=== PATIENT | female | born 1990 | race Caucasian/White ===

== ENCOUNTER 2020-08-29 10:15 | Outpatient (RCR) | payer OTHER, SELFPAY ==
[2020-08-08 13:07] VITALS: BMI 42.9
--- NOTE | 2020-08-08 13:21 | PC.ADMIT ---
Patient is a 30 year old female who was referred by her outpatient therapist d/t increase in depression and anxiety and self harming behaviors. Patient reports Hx of cutting on and off since age 16. Last time she cut was a week ago. Patient reports the cuts are superficial. Patient also struggling with panic attacks and PTSD sxs. Patient reports she works at [employer] and is currently on a [employer] d/t her symptoms. Patient presents with depressed mood, anxious affect. Denied current SI. Reports having passive thoughts that it would be nice if she did not exsist however reports that she does not want to . Patient's medications reconciled with patient and patient's pharmacy. Reports taking medications as prescribed. She has Type I diabetes reporting she was dx when she was 11 years old. Stated her blood sugars by glucometer run in the 150-200 range and reports checking her BS a few times a day. Stated she is a brittle diabetic and sees her pesticide control inspector Q 3 months as a result. Patient gave verbal permission to email her a copy of her safety plan. [ End ]
--- NOTE | 2020-08-08 14:01 | HO.PS.ADMBH ---
HPI Chief Complaint: depression Sources of Information: patient interviewed, chart reviewed and crisis/core team assessment reviewed HPI Narrative: Pt is a 30 year-old woman with hx of Bipolar Disorder who was referred by OP psychotherapist to PHP due to increased depression, passive suicidal ideation, anhedonia, increased anxiety. Pt reports that for the past 8 months she has been working nights, extra hours, feels exhausted. She reports passive suicidal ideation but denies any plan or intent to hurt herself. She denies hx of suicide attempts. She denies hx of VH/AH. She reports multiple medication trials in the past but thinks current medications are helpful. Past Psychiatric History: Inpatient: 2017 unknown location OP: [facility]uero[facility]; [facility]. Suicide attempts: none Medication trials: lithium, multiple antidepressants Medical Evaluation Reviewed: Yes [facility] Medical History (Updated 08/12/20 @ 15:00 by Kelin Scott) Hyperlipemia PCOS (polycystic ovarian syndrome) Precancerous changes of the cervix Type I diabetes mellitus Diagnostics Vital Signs (24Hr): Body Mass Index 42.9 Meds/Allergies Allergies Allergies Allergy/AdvReac Type Severity Reaction Status Date / Time No Known Allergies Allergy Verified 08/08/20 12:55 [No Known Allergies*] Mental Status Exam Mental Status Exam Narrative: Appearance: casually groomed, fair hygiene, in NAD Behavior: calm, cooperative Psychomotor: no agitation or retardation noted Speech: clear, normal rate/rhythm/volume, spontaneous TP: linear TC: no signs of psychosis, hopeless/helpless, anhedonia Mood: depressed Affect:blunted SI:passive but denies plan or intent HI:none AH/VH:none Delusions:none Insight/judgment:fair x 2. Memory/cog: alert, oriented x 3. grossly intact to conversational testing. Assessment & Plan Assessment & Plan (1) Bipolar 2 disorder, major depressive episode: Status: Acute Code(s): F31.81 - Bipolar II disorder Assessment and Plan: 1. continue current medications. Certification I certify that partial hospital treatment is medically necessary due to the symptoms and problems resulting from the patient's mental illness and the failure to treat the patient at the partial hospital level of care would likely result in the patient requiring inpatient psychiatric care which could not be prevented at a less intensive level of care. Telehealth Telehealth Location of provider rendering services: practice address Location of patient: address on file Patient Identification confirmed using: Name, : Yes Telehealth method: video Patient verbally consented to treatment: Yes Patient verbally consented to billing insurance company: Yes Patient informed of any privacy concerns related to visit: Yes Time spent with patient (mins): 30
--- NOTE | 2020-08-14 13:58 | P.PNPSP_ITS ---
Subjective Subjective Date of Service: 08/14/20 Reason For Visit: depression Interim History: The patient that she has improved with her current regimen. She reports that her depressive symptoms have improved but she has some residual symptoms such as anxiety and sporadic dysphoria but no safety concerns. We discussed at lent her treatment options and she was reluctant to do any medication changes. Medication Compliance: Yes Side effects from medications: No Review of Systems Review of Systems Yes all other systems are reviewed and are negative Mental Status Exam Mental Status Exam Patient Appearance: Well Grooomed and Appropriate Patient Orientation: Person, Place, Time and Situation Level of Consciousness: Awake Patient Behavior: Appropriate Mood Description: Calm Affect Description: Constricted Patient Cognition Impaired: No Ability to Follow Directions: Excellent Speech Pattern: Clear Memory Description: Intact Hallucinations: None Delusions: Not Present Thought Process: Intact Thought Content: positive for Intact Judgement: Good Judgement and Insight: Insight improved Diagnostics Vital Signs (24Hr): Body Mass Index 42.9 Assessment & Plan Patient educated on: diagnosis and medication risk/benefits Informed Consent: understands Reason for contiued partial hosp. stay Substantial Risk for: rapid decompensation Certification I certify that partial hospital treatment is medically necessary due to the symptoms and problems resulting from the patient's mental illness and the failure to treat the patient at the partial hospital level of care would likely result in the patient requiring inpatient psychiatric care which could not be prevented at a less intensive level of care. Greater than 50% of the session was spent on counseling and/or coordination of care Discharge Plan Discharge Attending provider: Benjamin Villa Additional Instructions: Keep current regimen F/U as per protocol Medications: New lorazepam [Ativan] 1 mg tablet 1 mg PO DAILY PRN (Reason: anxiety) Qty: 7 RF: 0 No Action lamotrigine [Lamictal] 200 mg Tablet 200 mg PO DAILY RF: 0 spironolactone 100 mg Tablet 100 mg PO DAILY RF: 0 dextroamphetamine-amphetamine [Adderall XR] 20 mg capsule,extended release 2 4hr 1 cap PO QAM RF: 0 zolpidem [Ambien] 5 mg Tablet 5 mg PO BEDTIME PRN (Reason: Insomnia) RF: 0 insulin lispro [Humalog KwikPen Insulin] 100 unit/mL insulin pen See Rx Instructions .ROUTE .COMPLEX RF: 0 rosuvastatin [Crestor] 20 mg Tablet 20 mg PO DAILY RF: 0 bupropion HCl [Wellbutrin XL] 300 mg Tablet Extended Release 24 Hr 300 mg PO QAM RF: 0 Lantus Solostar U-100 Insulin 100 unit/mL (3 mL) insulin pen See Rx Instructions .ROUTE .COMPLEX RF: 0 Vitamin D3 100 mcg (4,000 unit) Capsule 100 mcg PO DAILY RF: 0 biotin 1,000 mcg Tablet,Chewable 1,000 mcg PO DAILY RF: 0 Telehealth Telehealth Location of provider rendering services: practice address Location of patient: address on file Patient Identification confirmed using: Name, : Yes Telehealth method: video Patient verbally consented to treatment: Yes Patient verbally consented to billing insurance company: Yes Patient informed of any privacy concerns related to visit: Yes Time spent with patient (mins): 25
--- NOTE | 2020-08-19 12:48 | PC.NURSE ---
Called patent and let her know that we are cancelling groups for the remainder of the day as we lost power. Patient plans on returning to the program tomorrow.
--- NOTE | 2020-08-21 10:45 | PC.NURSE ---
I called and spoke to pt. She was scheduled to discharge from [facility] today, but appeared quite overwhelmed and agitated in group, and indicated not feelign ready. I asked if she would like more time. She spoke about stress related to getting time off of work, and having to change the return to work date, but ultimately decided to accept more time in the program. She will work on grounding and coping with urges to self harm and to engage in other self-destructive behaviors.
--- NOTE | 2020-08-21 13:25 | HO.PHPPROGNO ---
Subjective Subjective Date of Service: 08/21/20 Reason For Visit: depression Interim History: The patient reported that the current regimen has been working well with her, her mood is chronically dhsphoric due to psychosocial stressors. So far, the medicatons are working well for her, no side effects. She is reluctant to increase Lamictal or any other medications Medication Compliance: Yes Side effects from medications: No Review of Systems Review of Systems Yes all other systems are reviewed and are negative Mental Status Exam Mental Status Exam Patient Appearance: Well Grooomed Patient Orientation: Person, Place, Time and Situation Level of Consciousness: Awake Patient Behavior: Appropriate Mood Description: Calm Affect Description: Calm Patient Cognition Impaired: No Ability to Follow Directions: Good Speech Pattern: Clear Memory Description: Intact Hallucinations: None Delusions: Not Present Thought Process: Intact Judgement: Fair Diagnostics Vital Signs (24Hr): Body Mass Index 42.9 Assessment & Plan Assessment & Plan (1) Bipolar 2 disorder, major depressive episode: Status: Acute Code(s): F31.81 - Bipolar II disorder Assessment and Plan: Keep same treatment Certification I certify that partial hospital treatment is medically necessary due to the symptoms and problems resulting from the patient's mental illness and the failure to treat the patient at the partial hospital level of care would likely result in the patient requiring inpatient psychiatric care which could not be prevented at a less intensive level of care. Greater than 50% of the session was spent on counseling and/or coordination of care Discharge Plan Discharge Attending provider: Benjamin Villa Additional Instructions: Keep current regimen F/U as per protocol Medications: New lorazepam [Ativan] 1 mg tablet 1 mg PO DAILY PRN (Reason: anxiety) Qty: 7 RF: 0 No Action lamotrigine [Lamictal] 200 mg Tablet 200 mg PO DAILY RF: 0 spironolactone 100 mg Tablet 100 mg PO DAILY RF: 0 dextroamphetamine-amphetamine [Adderall XR] 20 mg capsule,extended release 24hr 1 cap PO QAM RF: 0 zolpidem [Ambien] 5 mg Tablet 5 mg PO BEDTIME PRN (Reason: Insomnia) RF: 0 insulin lispro [Humalog KwikPen Insulin] 100 unit/mL insulin pen See Rx Instructions .ROUTE .COMPLEX RF: 0 rosuvastatin [Crestor] 20 mg Tablet 20 mg PO DAILY RF: 0 bupropion HCl [Wellbutrin XL] 300 mg Tablet Extended Release 24 Hr 300 mg PO QAM RF: 0 Lantus Solostar U-100 Insulin 100 unit/mL (3 mL) insulin pen See Rx Instructions .ROUTE .COMPLEX RF: 0 Vitamin D3 100 mcg (4,000 unit) Capsule 100 mcg PO DAILY RF: 0 biotin 1,000 mcg Tablet,Chewable 1,000 mcg PO DAILY RF: 0 Telehealth Telehealth Location of provider rendering services: practice address Location of patient: address on file Patient Identification confirmed using: Name, : Yes Telehealth method: video Patient verbally consented to treatment: Yes Patient verbally consented to billing insurance company: Yes Patient informed of any privacy concerns related to visit: No Time spent with patient (mins): 15
--- NOTE | 2020-08-28 14:00 | HO.PHPPROGNO ---
Subjective Subjective Date of Service: 08/28/20 Reason For Visit: depression Interim History: The patient reported that she felt OK with the current treatment. Her mood is stable. No safety issues. Medication Compliance: Yes Side effects from medications: No Review of Systems Review of Systems Yes all other systems are reviewed and are negative Mental Status Exam Mental Status Exam Patient Appearance: Well Grooomed Patient Orientation: Person, Place, Time and Situation Level of Consciousness: Awake and Appropriate Patient Behavior: Appropriate Mood Description: Calm Affect Description: Calm Patient Cognition Impaired: No Ability to Follow Directions: Good Speech Pattern: Clear Memory Description: Intact Hallucinations: None Delusions: Not Present Thought Process: Goal Oriented Thought Content: positive for Intact Judgement: Fair Diagnostics Vital Signs (24Hr): Body Mass Index 42.9 Assessment & Plan Assessment & Plan (1) Bipolar 2 disorder, major depressive episode: Status: Acute Code(s): F31.81 - Bipolar II disorder Assessment and Plan: Keep same treatment Certification I certify that partial hospital treatment is medically necessary due to the symptoms and problems resulting from the patient's mental illness and the failure to treat the patient at the partial hospital level of care would likely result in the patient requiring inpatient psychiatric care which could not be prevented at a less intensive level of care. Greater than 50% of the session was spent on counseling and/or coordination of care Discharge Plan Discharge Attending provider: Benjamin Villa Additional Instructions: Keep current regimen F/U as per protocol Medications: New lorazepam [Ativan] 1 mg tablet 1 mg PO DAILY PRN (Reason: anxiety) Qty: 7 RF: 0 Continued spironolactone 100 mg Tablet 100 mg PO DAILY RF: 0 dextroamphetamine-amphetamine [Adderall XR] 20 mg capsule,extended release 24hr 1 cap PO QAM RF: 0 zolpidem [Ambien] 5 mg Tablet 5 mg PO BEDTIME PRN (Reason: Insomnia) RF: 0 rosuvastatin [Crestor] 20 mg Tablet 20 mg PO DAILY RF: 0 bupropion HCl [Wellbutrin XL] 300 mg Tablet Extended Release 24 Hr 300 mg PO QAM RF: 0 Vitamin D3 100 mcg (4,000 unit) Capsule 100 mcg PO DAILY RF: 0 biotin 1,000 mcg Tablet,Chewable 1,000 mcg PO DAILY RF: 0 lamotrigine [Lamictal] 200 mg Tablet 200 mg PO DAILY 30 Days Qty: 30 RF: 0 No Action insulin lispro [Humalog KwikPen Insulin] 100 unit/mL insulin pen See Rx Instructions .ROUTE .COMPLEX RF: 0 Lantus Solostar U-100 Insulin 100 unit/mL (3 mL) insulin pen See Rx Instructions .ROUTE .COMPLEX RF: 0 Telehealth Telehealth Location of provider rendering services: practice address Location of patient: address on file Patient Identification confirmed using: Name, : Yes Telehealth method: video Patient verbally consented to treatment: Yes Patient verbally consented to billing insurance company: Yes Patient informed of any privacy concerns related to visit: No Time spent with patient (mins): 15
--- NOTE | 2020-08-29 14:39 | PC.NURSE ---
I called pt and left a message- asked her to pls call to review discharge.
--- NOTE | 2020-08-29 16:08 | PC.NURSE ---
I called and spoke to pt's therapist at [facility], Ashley Mahajan, informing her of pt's successful treatment stay, progress made, and discharge from [facility] today.
== END 2020-08-30 14:24 | disposition home or self-care (01) ==
LOC: HO.PHPA 10:15
PROVIDERS: Visit Provider Psychiatry & Neurology Psychiatry
DX: F31.81 Bipolar II disorder (principal); Z79.899 Other long term (current) drug therapy
CPT/HCPCS: 90791; 90853; 99213